=== PATIENT | female | born 1985 | race Caucasian/White ===

== ENCOUNTER 2021-04-18 23:23 | Emergency (ER) | payer OTHER ==
[~2021-04-18] VITALS: Ht 157.5 cm; Wt 86.2 kg
--- NOTE | 2021-04-18 23:28 | NUR ---
PT AAOX4. AMBULATORY WITH STEADY GAIT. BIBSELF C/O POSSIBLE ALLERGIC REACTION S/P BEING AT VET OFFICE. PLACED IN BED 8 ON MONITOR AND PULSE OX. RR EVEN AND UNLABORED. AWAITING ER MD FOR EVAL AND ORDERS.
[2021-04-18] MEDS ORDERED: FAMOTIDINE (20 MG) 20 MG TABLET PO ONE (23:30)
[2021-04-18] MEDS ORDERED: diphenhydrAMINE HCL 50 MG CAPSULE PO ONE (23:30)
[2021-04-18] MEDS ORDERED: ALBUTEROL FS 2.5 MG/3 ML VIAL.NEB NEB ONE (23:30)
[2021-04-18] MEDS ORDERED: predniSONE 10 MG TABLET PO ONE (23:30)
[2021-04-18] MEDS ORDERED: ONDANSETRON 4 MG TAB.RAPDIS PO ONE (23:30)
--- NOTE | 2021-04-18 23:32 | NUR ---
called rt for breathing tx
[2021-04-18] MEDS ORDERED: diphenhydrAMINE HCL 50 MG CAPSULE ONE (23:33)
[2021-04-18] MEDS ORDERED: predniSONE 20 MG TABLET ONE (23:33)
[2021-04-18] MEDS ORDERED: ONDANSETRON 4 MG TAB.RAPDIS ONE (23:34)
[2021-04-18] MEDS ORDERED: FAMOTIDINE (20 MG) 20 MG TABLET ONE (23:34)
[2021-04-18] MEDS ORDERED: ALBUTEROL FS 2.5 MG/3 ML VIAL.NEB ONE (23:37)
[2021-04-19 00:24] VITALS: BP 119/72
--- NOTE | 2021-04-19 00:25 | NUR ---
Patient discharged to home in stable condition. Written and verbal after care instructions given. Patient verbalizes understanding of instruction. RR even and unlabored. vss.
== END 2021-04-19 00:34 | disposition home or self-care (01) ==
LOC: ER 23:26
DX: T78.40XA Allergy, unspecified, initial encounter (principal); R06.2 Wheezing; X58.XXXA Exposure to other specified factors, initial encounter
CPT/HCPCS: 94640; 99284; J7512 ×2; Q0162; Q0163